=== PATIENT | female | born 1980 | race Asian ===

== ENCOUNTER 2018-01-24 12:43 | Emergency (ER) | payer OTHER ==
[~2018-01-24] VITALS: Ht 157.5 cm; Wt 58.5 kg
[2018-01-24 12:46] VITALS: Ht 157.5 cm; Wt 58.5 kg
[2018-01-24 14:24] VITALS: BP 98/61
== END 2018-01-24 14:24 | disposition home or self-care (01) ==
LOC: ED 12:43
DX: S20.219A Contusion of unspecified front wall of thorax, initial encounter (principal); M54.6 Pain in thoracic spine; V43.62XA Car passenger injured in collision with other type car in traffic accident, initial encounter; Y93.89 Activity, other specified; Y92.488 Other paved roadways as the place of occurrence of the external cause; Y99.8 Other external cause status